=== PATIENT | female | born 1995 | race Caucasian/White ===

== ENCOUNTER → 2020-02-10 17:25 | Observation (INO) ==
[2020-02-10 15:37] VITALS: BP 157/95
[2020-02-10 15:53] LABS: Bacteria,Urine Few per hpf (None-Few); Bilirubin,Urine Negative (Negative); Blood,Urine Negative (Negative); Clarity,Urine Turbid (Clear); Color,Urine Yellow (Yellow); Glucose,Urine (UA) Normal (Normal); Ketones,Urine Trace mg/dL (Negative); Leukocyte Esterase,Urine Moderate (Negative); Mucus,Urine Few per lpf (None-Few); Nitrite,Urine Negative (Negative); PH,Urine 6.5 pH Units (5.0-8.0); Protein,Urine 30 mg/dL (Neg-Trace); Specific Gravity,Urine > 1.030 (1.010-1.025); Squamous Epithelial Cell,Urine Moderate per hpf (None-Few); Urobilinogen,Urine Normal (Normal)
[2020-02-10 15:55] LABS: Protein/Creatinine Ratio,Urine 0.14 mg/mg (0.00-0.20)
[2020-02-10 16:06] LABS: Alanine Aminotransferase 37 Units/L (7-52); Aspartate Amino Transferase 23 Units/L (13-39); BUN/Creatinine Ratio 26 (6-26); Blood Urea Nitrogen 15 mg/dL (6-20); Lactate Dehydrogenase 146 Units/L (140-271); Uric Acid 5.3 mg/dL (2.3-7.6); eGFR For African Americans > 60 (> 60); eGFR For Non-African Americans > 60 (> 60)
[2020-02-10 16:08] LABS: Basophils % 0.2 %; Eosinophils # 0.1 K/mcL (0.0-0.6); Eosinophils % 0.6 %; Hematocrit 38.3 % (35.3-44.9); Hemoglobin 12.8 g/dL (11.5-15.4); Immature Granulocytes % 0.3 % (0-4); Lymphocytes # 1.4 K/mcL (0.6-4.6); Lymphocytes % 12.2 %; Mean Corpuscular HGB Conc 33.4 g/dL (31.6-35.5); Mean Corpuscular Hemoglobin 29.6 pg (28.0-33.3); Mean Corpuscular Volume 88.7 fL (83.0-100.0); Monocytes # 0.5 K/mcL (0.0-1.3); Monocytes % 4.6 %; Neutrophils # 9.4 K/mcL (1.6-8.9); Platelet Count 158 K/mcL (140-400); Red Blood Count 4.32 M/mcL (3.82-4.97); Red Cell Distribution Width 12.8 % (11.5-14.5); Segmented Neutrophils % 82.1 %; White Blood Count 11.4 K/mcL (4.3-11.1)
== END | disposition home or self-care (01) ==
LOC: 1NENULAB
PROVIDERS: ADMIT Obstetrics & Gynecology; ATTEND Obstetrics & Gynecology

== ENCOUNTER 2020-02-13 17:55 | Observation (INO) ==
[2020-02-13 19:01] LABS: Basophils % 0.2 %; Eosinophils # 0.1 K/mcL (0.0-0.6); Eosinophils % 0.9 %; Hematocrit 36.3 % (35.3-44.9); Hemoglobin 11.9 g/dL (11.5-15.4); Immature Granulocytes % 0.4 % (0-4); Lymphocytes # 1.4 K/mcL (0.6-4.6); Lymphocytes % 13.8 %; Mean Corpuscular HGB Conc 32.8 g/dL (31.6-35.5); Mean Corpuscular Hemoglobin 28.4 pg (28.0-33.3); Mean Corpuscular Volume 86.6 fL (83.0-100.0); Mean Platelet Volume 10.8 fL (9.4-12.4); Monocytes # 0.5 K/mcL (0.0-1.3); Monocytes % 4.4 %; Neutrophils # 8.4 K/mcL (1.6-8.9); Platelet Count 161 K/mcL (140-400); Red Blood Count 4.19 M/mcL (3.82-4.97); Red Cell Distribution Width 13.2 % (11.5-14.5); Segmented Neutrophils % 80.3 %; White Blood Count 10.4 K/mcL (4.3-11.1)
[2020-02-13 19:02] LABS: Protein/Creatinine Ratio,Urine 0.13 mg/mg (0.00-0.20)
[2020-02-13 19:12] LABS: Alanine Aminotransferase 38 Units/L (7-52); Aspartate Amino Transferase 29 Units/L (13-39); BUN/Creatinine Ratio 19 (6-26); Blood Urea Nitrogen 10 mg/dL (6-20); Lactate Dehydrogenase 136 Units/L (140-271); Uric Acid 5.3 mg/dL (2.3-7.6); eGFR For African Americans > 60 (> 60); eGFR For Non-African Americans > 60 (> 60)
== END 2020-02-13 20:44 | disposition home or self-care (01) ==
LOC: 1NENULAB
PROVIDERS: ADMIT Obstetrics & Gynecology; ATTEND Obstetrics & Gynecology

== ENCOUNTER → 2020-02-29 14:03 | Observation (INO) ==
[2020-02-29 13:15] LABS: Basophils % 0.1 %; Eosinophils # 0.1 K/mcL (0.0-0.6); Eosinophils % 1.1 %; Hematocrit 37.2 % (35.3-44.9); Hemoglobin 11.9 g/dL (11.5-15.4); Immature Granulocytes % 0.5 % (0-4); Lymphocytes # 1.1 K/mcL (0.6-4.6); Lymphocytes % 10.4 %; Mean Corpuscular Hemoglobin 28.5 pg (28.0-33.3); Mean Platelet Volume 10.9 fL (9.4-12.4); Monocytes # 0.5 K/mcL (0.0-1.3); Monocytes % 4.3 %; Neutrophils # 9.1 K/mcL (1.6-8.9); Platelet Count 155 K/mcL (140-400); Red Blood Count 4.18 M/mcL (3.82-4.97); Red Cell Distribution Width 13.2 % (11.5-14.5); Segmented Neutrophils % 83.6 %; White Blood Count 10.9 K/mcL (4.3-11.1)
[2020-02-29 13:23] LABS: Protein/Creatinine Ratio,Urine 0.2 mg/mg (0.00-0.20)
[2020-02-29 13:30] LABS: Alanine Aminotransferase 130 Units/L (7-52); Aspartate Amino Transferase 64 Units/L (13-39); BUN/Creatinine Ratio 22 (6-26); Blood Urea Nitrogen 11 mg/dL (6-20); Lactate Dehydrogenase 140 Units/L (140-271); Uric Acid 5.9 mg/dL (2.3-7.6); eGFR For African Americans > 60 (> 60); eGFR For Non-African Americans > 60 (> 60)
== END | disposition home or self-care (01) ==
LOC: 1NENULAB
PROVIDERS: ADMIT Obstetrics & Gynecology; ATTEND Obstetrics & Gynecology

== ENCOUNTER 2020-03-03 16:20 | Inpatient (IN) ==
[2020-03-03] MEDS ORDERED: Metoclopramide 10 MG/2 ML VIAL IVP PRN (16:32)
[2020-03-03] MEDS ORDERED: Naloxone 0.4 MG/ML INJ IVP PRN (16:32)
[2020-03-03] MEDS ORDERED: Famotidine 20 MG/2 ML VIAL IVP PRN (16:32)
[2020-03-03] MEDS ORDERED: *HR* Nalbuphine 10 MG/ML AMPUL IV PRN (16:32)
[2020-03-03] MEDS ORDERED: Penicillin G Potassium 5,000,000 UNIT in 0.9 % Sodium Chloride Mini Bag 100 ML IVPB ONE (16:42)
[2020-03-03] MEDS ORDERED: Ringers Solution, Lactated 1,000 ML IVC SCH (16:45)
[2020-03-03 17:16] LABS: Basophils % 0.1 %; Eosinophils # 0.1 K/mcL (0.0-0.6); Eosinophils % 1.1 %; Hematocrit 38.5 % (35.3-44.9); Hemoglobin 12.8 g/dL (11.5-15.4); Immature Granulocytes % 0.5 % (0-4); Lymphocytes # 1.2 K/mcL (0.6-4.6); Lymphocytes % 11.1 %; Mean Corpuscular HGB Conc 33.2 g/dL (31.6-35.5); Mean Corpuscular Hemoglobin 29.6 pg (28.0-33.3); Mean Corpuscular Volume 88.9 fL (83.0-100.0); Mean Platelet Volume 11.6 fL (9.4-12.4); Monocytes # 0.5 K/mcL (0.0-1.3); Monocytes % 4.2 %; Neutrophils # 9.2 K/mcL (1.6-8.9); Platelet Count 159 K/mcL (140-400); Red Blood Count 4.33 M/mcL (3.82-4.97); Red Cell Distribution Width 13.2 % (11.5-14.5)
[2020-03-03 17:20] LABS: Amphetamine Screen,Urine Negative ng/mL (Cutoff=1000); Barbiturate Screen,Urine Negative ng/mL (Cutoff=200); Benzodiazepines Screen,Urine Negative ng/mL (Cutoff=200); Cannabinoid Screen,Urine Negative ng/mL (Cutoff = 50); Cocaine Screen,Urine Negative ng/mL (Cutoff= 300); Creatinine,Urine 166 mg/dL; Opiate Screen,Urine Negative ng/mL (Cutoff=300); Phencyclidine Screen,Urine Negative ng/mL (Cutoff=25); Protein/Creatinine Ratio,Urine 0.14 mg/mg (0.00-0.20)
[2020-03-03 17:34] LABS: Uric Acid 5.9 mg/dL (2.3-7.6)
[2020-03-03] MEDS: miSOPROStoL 25 MCG TABLET PO PRN ×2 (17:46→21:48)
[2020-03-03] MEDS: Penicillin G Potassium 2,500,000 UNIT/105 ML MLS IVPB SCH (21:17)
[2020-03-03] MEDS ORDERED: Ropivacaine/PF 0.2% 20 ML VIAL ONE (23:44)
[2020-03-03] MEDS ORDERED: *HR* FentaNYL (PF) 100 MCG/2 ML VIAL ONE (23:44)
[2020-03-03] MEDS ORDERED: Epidural Premix (fent/bupiv) 110 ML EP ONE (23:46)
[2020-03-04] MEDS: Ondansetron 4 MG/2 ML VIAL IVP PRN ×2 (00:59→07:29)
[2020-03-04] MEDS: Penicillin G Potassium 2,500,000 UNIT/105 ML MLS IVPB SCH ×2 (01:51→06:09)
[2020-03-04] MEDS ORDERED: Oxytocin 20 units/ LR 1000 mL 20 UNIT/1,000 ML BAG IVC SCH ×3 (02:00→14:46)
[2020-03-04] MEDS ORDERED: Epidural Premix (fent/bupiv) 110 ML EP ONE (07:32)
[2020-03-04] MEDS ORDERED: *HR* OxyCODONE/APAP 5/325 TABLET PO PRN (08:53)
[2020-03-04] MEDS ORDERED: Ibuprofen 400 MG TABLET PO PRN (08:53)
[2020-03-04] MEDS ORDERED: *HR* HYDROmorphone (PF) 1 MG/ML SYRINGE IVP PRN (08:53)
[2020-03-04] MEDS ORDERED: Ondansetron 4 MG/2 ML VIAL IVP PRN ×2 (08:53→14:46)
[2020-03-04] MEDS ORDERED: Acetaminophen IV 1,000 MG/100 ML BAG IVPB ONE (08:54)
[2020-03-04] MEDS ORDERED: Azithromycin 500 MG in 0.9 % Sodium Chloride 250 ML IVPB ONE (09:07)
[2020-03-04] MEDS ORDERED: Vancomycin 2,000 MG/520 ML IV.SOLN IVPB ONE (09:08)
[2020-03-04 10:21] LABS: Influenza A PCR Negative (Negative); Influenza B PCR Negative (Negative); Resp. Syncytial Virus PCR Negative (Negative)
[2020-03-04 10:31] LABS: SARS-CoV-2 by PCR (In House) Negative (Negative)
[2020-03-04] MEDS ORDERED: Lidocaine/EPI 1:200k 2% PF 20 ML VIAL ONE (11:05)
[2020-03-04] MEDS ORDERED: Ondansetron 4 MG/2 ML VIAL ONE (11:22)
[2020-03-04] MEDS ORDERED: Ketorolac 30 MG/ML VIAL ONE (11:23)
[2020-03-04] MEDS ORDERED: Magnesium Sulf 20 gm/SW 500mL 20 GM/500 ML IV.SOLN IVC SCH ×2 (12:45→14:46)
[2020-03-04] MEDS ORDERED: Calcium Gluconate 1,000 MG/10 ML VIAL ONE (13:28)
[2020-03-04] MEDS ORDERED: Metoclopramide 10 MG/2 ML VIAL IVP PRN (14:46)
[2020-03-04] MEDS ORDERED: Simethicone 80 MG TAB.CHEW PO PRN (14:46)
[2020-03-04] MEDS ORDERED: Sennosides 8.6 MG TABLET PO PRN (14:46)
[2020-03-04] MEDS ORDERED: Calcium Gluconate 1,000 MG/10 ML VIAL IVP PRN (14:46)
[2020-03-04] MEDS ORDERED: Naloxone 0.4 MG/ML INJ IVP PRN (14:46)
[2020-03-04] MEDS ORDERED: cephALEXin 500 MG CAPSULE PO SCH (15:00)
[2020-03-04] MEDS: Ibuprofen 600 MG TABLET PO PRN ×2 (15:21→22:54)
[2020-03-04] MEDS: metroNIDAZOLE 500 MG TABLET PO SCH ×2 (15:22→20:18)
[2020-03-04] MEDS: *HR* OxyCODONE/APAP 5/325 TABLET PO PRN (16:13)
[2020-03-04] MEDS ORDERED: *HR* OxyCODONE/APAP 5/325 TABLET PO ONE (17:24)
[2020-03-04] MEDS: Magnesium Sulf 20 gm/SW 500mL 20 GM/500 ML IV.SOLN IVC SCH (22:52)
[2020-03-04] MEDS: *HR* OxyCODONE/APAP 10/325 TABLET PO PRN (22:54)
[2020-03-05 04:54] LABS: Basophils % 0.2 %; Eosinophils % 0.3 %; Hematocrit 32.3 % (35.3-44.9); Immature Granulocytes % 0.5 % (0-4); Lymphocytes # 1.4 K/mcL (0.6-4.6); Lymphocytes % 11.6 %; Mean Corpuscular HGB Conc 33.4 g/dL (31.6-35.5); Mean Corpuscular Hemoglobin 29.1 pg (28.0-33.3); Mean Corpuscular Volume 87.1 fL (83.0-100.0); Mean Platelet Volume 11.2 fL (9.4-12.4); Monocytes # 0.7 K/mcL (0.0-1.3); Monocytes % 5.7 %; Neutrophils # 10.1 K/mcL (1.6-8.9); Platelet Count 139 K/mcL (140-400); Red Blood Count 3.71 M/mcL (3.82-4.97); Red Cell Distribution Width 12.9 % (11.5-14.5); Segmented Neutrophils % 81.7 %; White Blood Count 12.4 K/mcL (4.3-11.1)
[2020-03-05 04:55] LABS: Hemoglobin 10.8 g/dL (11.5-15.4)
[2020-03-05 05:15] LABS: Alanine Aminotransferase 101 Units/L (7-52); BUN/Creatinine Ratio 14 (6-26); Blood Urea Nitrogen 8 mg/dL (6-20); Lactate Dehydrogenase 158 Units/L (140-271); Magnesium 4.9 mg/dL (1.6-2.6); Uric Acid 6.6 mg/dL (2.3-7.6); eGFR For African Americans > 60 (> 60); eGFR For Non-African Americans > 60 (> 60)
[2020-03-05] MEDS: Ibuprofen 600 MG TABLET PO PRN (05:47)
[2020-03-05] MEDS: *HR* OxyCODONE/APAP 10/325 TABLET PO PRN ×4 (05:48→21:40)
[2020-03-05] MEDS: metroNIDAZOLE 500 MG TABLET PO SCH ×3 (08:56→20:07)
[2020-03-05] MEDS: Prenatal Vit/FA 1 EACH TABLET PO SCH (08:56)
[2020-03-05] MEDS: Magnesium Sulf 20 gm/SW 500mL 20 GM/500 ML IV.SOLN IVC SCH (09:04)
[2020-03-05] MEDS: Ibuprofen 600 MG TABLET PO SCH ×3 (11:46→23:33)
[2020-03-06] MEDS: *HR* OxyCODONE/APAP 10/325 TABLET PO PRN ×2 (04:42→19:45)
[2020-03-06 05:06] LABS: Basophils % 0.3 %; Eosinophils # 0.1 K/mcL (0.0-0.6); Eosinophils % 0.9 %; Hematocrit 33.9 % (35.3-44.9); Immature Granulocytes % 0.3 % (0-4); Lymphocytes # 1.9 K/mcL (0.6-4.6); Lymphocytes % 19.3 %; Mean Corpuscular HGB Conc 32.4 g/dL (31.6-35.5); Mean Corpuscular Hemoglobin 28.5 pg (28.0-33.3); Mean Corpuscular Volume 87.8 fL (83.0-100.0); Mean Platelet Volume 10.7 fL (9.4-12.4); Monocytes # 0.6 K/mcL (0.0-1.3); Monocytes % 6.4 %; Neutrophils # 7.3 K/mcL (1.6-8.9); Platelet Count 160 K/mcL (140-400); Red Blood Count 3.86 M/mcL (3.82-4.97); Red Cell Distribution Width 13.3 % (11.5-14.5); Segmented Neutrophils % 72.8 %
[2020-03-06 05:23] LABS: Alanine Aminotransferase 114 Units/L (7-52); Aspartate Amino Transferase 65 Units/L (13-39); BUN/Creatinine Ratio 21 (6-26); Blood Urea Nitrogen 14 mg/dL (6-20); Lactate Dehydrogenase 163 Units/L (140-271); Uric Acid 7.9 mg/dL (2.3-7.6); eGFR For African Americans > 60 (> 60); eGFR For Non-African Americans > 60 (> 60)
[2020-03-06] MEDS: Ibuprofen 600 MG TABLET PO SCH ×4 (06:28→22:22)
[2020-03-06] MEDS: metroNIDAZOLE 500 MG TABLET PO SCH (08:21)
[2020-03-06] MEDS: *HR* OxyCODONE/APAP 5/325 TABLET PO PRN ×2 (08:22→14:22)
[2020-03-06] MEDS: Prenatal Vit/FA 1 EACH TABLET PO SCH (08:22)
[2020-03-07] MEDS: *HR* OxyCODONE/APAP 10/325 TABLET PO PRN ×2 (00:03→05:46)
[2020-03-07] MEDS: Ibuprofen 600 MG TABLET PO SCH (05:46)
[2020-03-07 07:06] LABS: Basophils % 0.2 %; Eosinophils # 0.2 K/mcL (0.0-0.6); Immature Granulocytes % 0.3 % (0-4); Lymphocytes # 1.7 K/mcL (0.6-4.6); Mean Corpuscular HGB Conc 31.3 g/dL (31.6-35.5); Mean Corpuscular Hemoglobin 28.1 pg (28.0-33.3); Mean Corpuscular Volume 89.9 fL (83.0-100.0); Mean Platelet Volume 10.8 fL (9.4-12.4); Monocytes # 0.5 K/mcL (0.0-1.3); Monocytes % 6.3 %; Neutrophils # 6.1 K/mcL (1.6-8.9); Platelet Count 141 K/mcL (140-400); Red Blood Count 3.56 M/mcL (3.82-4.97); Red Cell Distribution Width 13.2 % (11.5-14.5); Segmented Neutrophils % 71.2 %; White Blood Count 8.6 K/mcL (4.3-11.1)
[2020-03-07 07:25] VITALS: BP 115/73
[2020-03-07 07:26] LABS: Alanine Aminotransferase 151 Units/L (7-52); Aspartate Amino Transferase 121 Units/L (13-39); BUN/Creatinine Ratio 23 (6-26); Blood Urea Nitrogen 14 mg/dL (6-20); Lactate Dehydrogenase 190 Units/L (140-271); Uric Acid 7.2 mg/dL (2.3-7.6); eGFR For African Americans > 60 (> 60); eGFR For Non-African Americans > 60 (> 60)
[2020-03-07] MEDS: Prenatal Vit/FA 1 EACH TABLET PO SCH (09:06)
== END 2020-03-07 11:24 | disposition home or self-care (01) | DRG 540 ==
LOC: 1NENULAB 16:20 → 1NENUOBS 03-04 14:47
PROVIDERS: ADMIT Student in an Organized Health Care Education/Training Program; ATTEND Student in an Organized Health Care Education/Training Program